=== PATIENT | female | born 1945 | race American Indian/Alaskan Native ===

== ENCOUNTER → 2024-07-16 | Outpatient (CLI) | payer OTHER, SELFPAY ==
[2024-07-16 11:22] LABS: Basophils % (Auto) 0 % (0-2.5); Eosinophils % (Auto) 1 % (0-10); Hematocrit 41.7 % (36.0-46.0); Hemoglobin 13.3 g/dL (12.0-16.0); Immature Granulocytes % (Auto) 1 % (0-0); Immature Granulocytes Auto 0.05 Thou/mm3 (0.00-0.00); Lymphocytes # (Auto) 2.3 Thou/mm3 (1.0-4.8); Lymphocytes % (Auto) 32 % (10-50); Mean Corpuscular HGB Conc 31.9 g/dl (31.0-37.0); Mean Corpuscular Hemoglobin 29.4 pg (25.0-35.0); Mean Corpuscular Volume 92 fL (80-100); Monocytes # (Auto) 0.5 Thou/mm3 (0.0-0.8); Monocytes % (Auto) 7 % (0-12); Neutrophils # (Auto) 4.3 Thou/mm3 (1.8-7.7); Neutrophils % (Auto) 60 % (37-80); Nucleated Red Blood Cell % 0 /100 WBC (0); Platelet Count 250 Thou/mm3 (140-440); RDW Standard Deviation 44.1 fL (36.4-46.3); Red Blood Count 4.52 Miln/mm3 (4.00-5.20); White Blood Count 7.2 Thou/mm3 (3.6-11.0)
[2024-07-16 11:46] LABS: Alanine Aminotransferase 15 U/L (10-49); Albumin, Serum 4.3 gm/dL (3.4-4.8); Albumin/Globulin Ratio 1.8 (1.2-2.2); Alkaline Phosphatase 76 U/L (46-116); Anion Gap 7 (7-16); Aspartate Amino Transferase 19 U/L (0-34); BUN/Creatinine Ratio 28 Ratio (12-20); Bilirubin,Total 0.4 mg/dL (0.3-1.2); Blood Urea Nitrogen 22 mg/dL (9-23); C-Reactive Protein < 0.4 mg/dL (0.0-0.9); Calcium 9.2 mg/dL (8.3-10.6); Calcium (Corrected) 9.2 mg/dL (8.5-10.1); Carbon Dioxide 29.6 mMol/L (20.0-31.0); Chloride 105 mMol/L (98-107); Creatinine (Component) 0.8 mg/dL (0.6-1.3); Globulin 2.4 gm/dL (2.3-3.5); Glucose 94 mg/dL (74-106); Osmolality,Calculated 286 (275-295); Potassium 4.2 mMol/L (3.4-5.1); Sodium 142 mMol/L (136-145); Total Protein 6.7 gm/dL (5.7-8.2); eGFR > 60 See Note
[2024-07-16 12:09] LABS: Sed Rate (ESR) 14 mm/hr (0-30)
== END | disposition home or self-care (01) ==
LOC: COPL 10:32
PROVIDERS: PCP Internal Medicine; Referring Provider Physician Assistant; Visit Provider Physician Assistant
DX: M05.79 Rheumatoid arthritis with rheumatoid factor of multiple sites without organ or systems involvement (principal)
CPT/HCPCS: 36415; 80053; 85025; 85652; 86140

== ENCOUNTER → 2024-08-10 | Outpatient (CLI) | payer OTHER, SELFPAY ==
[2024-08-10 08:10] LABS: Collection Type, Urine Clean Catch
[2024-08-10 08:35] LABS: Basophils % (Auto) 0 % (0-2.5); Eosinophils # (Auto) 0.1 Thou/mm3 (0.0-0.5); Eosinophils % (Auto) 1 % (0-10); Hemoglobin 13.5 g/dL (12.0-16.0); Immature Granulocytes % (Auto) 0 % (0-0); Immature Granulocytes Auto 0.02 Thou/mm3 (0.00-0.00); Lymphocytes # (Auto) 1.6 Thou/mm3 (1.0-4.8); Lymphocytes % (Auto) 23 % (10-50); Mean Corpuscular HGB Conc 32.9 g/dl (31.0-37.0); Mean Corpuscular Volume 91 fL (80-100); Monocytes # (Auto) 0.7 Thou/mm3 (0.0-0.8); Monocytes % (Auto) 10 % (0-12); Neutrophils # (Auto) 4.5 Thou/mm3 (1.8-7.7); Neutrophils % (Auto) 66 % (37-80); Nucleated Red Blood Cell % 0 /100 WBC (0); Platelet Count 232 Thou/mm3 (140-440); RDW Standard Deviation 43.5 fL (36.4-46.3); White Blood Count 6.9 Thou/mm3 (3.6-11.0)
[2024-08-10 08:53] LABS: Sed Rate (ESR) 9 mm/hr (0-30)
[2024-08-10 08:57] LABS: Bacteria,Urine 2+; Bilirubin,Urine Negative (Negative); Blood,Urine 1+ (Negative); Clarity,Urine Turbid (Clear/Hazy); Color,Urine Yellow (Lt Yel-Yel); Culture Indicated,Urine Contaminated; Glucose, Urine Negative (Negative); Ketones,Urine Negative (Negative); Leukocyte Esterase,Urine Positive (Negative); Nitrite,Urine Positive (Negative); Protein,Urine Negative (Neg - Trace); RBC,Urine 4 /hpf (0-3); Squamous Epithelial Cell,Urine 21 /hpf (0-5); Urobilinogen,Urine Negative mg/dL (0.0-1.0); WBC,Urine 35 /hpf (0-5)
[2024-08-10 09:31] LABS: Alanine Aminotransferase 15 U/L (10-49); Albumin, Serum 4.3 gm/dL (3.4-4.8); Alkaline Phosphatase 71 U/L (46-116); Anion Gap 7 (7-16); Aspartate Amino Transferase 18 U/L (0-34); BUN/Creatinine Ratio 26 Ratio (12-20); Bilirubin,Total 0.7 mg/dL (0.3-1.2); Blood Urea Nitrogen 18 mg/dL (9-23); Calcium 9.5 mg/dL (8.3-10.6); Calcium (Corrected) 9.5 mg/dL (8.5-10.1); Carbon Dioxide 28.7 mMol/L (20.0-31.0); Cardiac Risk Estimate 2.4 RATIO (3.7-5.6); Chloride 107 mMol/L (98-107); Cholesterol 139 mg/dL (132-200); Creatinine (Component) 0.7 mg/dL (0.6-1.3); Free T4 (Free Thyroxine) 1.11 ng/dL (0.89-1.76); Globulin 2.2 gm/dL (2.3-3.5); Glucose 95 mg/dL (74-106); HDL Cholesterol 59 mg/dL (40-60); LDL Cholesterol,Calculated 60 mg/dL (0-130); Osmolality,Calculated 286 (275-295); Potassium 4.2 mMol/L (3.4-5.1); Sodium 143 mMol/L (136-145); Total Protein 6.5 gm/dL (5.7-8.2); Triglycerides 100 mg/dL (30-150); eGFR > 60 See Note
== END | disposition home or self-care (01) ==
LOC: COPL 07:36
PROVIDERS: PCP Internal Medicine; Referring Provider Internal Medicine; Visit Provider Internal Medicine
DX: I10 Essential (primary) hypertension (principal)
CPT/HCPCS: 36415; 80053; 80061; 81001; 84439; 84443; 85025; 85652

== ENCOUNTER 2024-10-12 08:38 | Emergency (ER) | payer OTHER, SELFPAY ==
[2024-10-12 08:39] VITALS: BMI 30.2
[2024-10-12 08:50] VITALS: BP 107/59; PULSE 115; RESP 24; TEMP 37; O2SAT 95
--- NOTE | 2024-10-12 08:56 | XR_ITS ---
Examination: AP chest single view Technique one AP portable sitting chest single view Exam date and time: October 12, 2024 0917 hours Comparison January 24, 2018 INDICATIONS: Shortness of breath beginning 3 days ago. FINDINGS: Moderate elevation left hemidiaphragm. Normal heart size Opacity in the right middle lobe obscuring detail right hemidiaphragm IMPRESSION: Recommend lateral chest view follow-up to confirm pneumonia in the right middle lobe
--- NOTE | 2024-10-12 08:57 | PD.EDRME ---
Rapid Medical Screening Exam RME Arrival date/time: 10/12/24 08:38 78-year-old female presents to the emergency department today for complaints of shortness of breath Chief Complaint: Shortness of Breath/Dyspnea Vital signs: Vital Signs Temperature 98.6 F 10/12/24 08:50 Pulse Rate 115 H 10/12/24 08:50 Respiratory Rate 24 H 10/12/24 08:50 Blood Pressure 107/59 L 10/12/24 08:50 Pulse Oximetry (%) 95 10/12/24 08:50 Oxygen Delivery Method Room Air 10/12/24 08:50
[2024-10-12 09:08] VITALS: PULSE 112
--- NOTE | 2024-10-12 09:08 | PC.NURSE ---
Patient presents to ED with c/o difficulty breathing for past couple of days. Patient speaking in 4-5 letter sentences, noted cough and wheezing in between, patient sitting upright in gurney. Patient on property assessment monitor and pulse ox with 96% on room air. Patient states I feel like i cant catch my breath . Patient updated with plans of MD pineda and plan of care at this time.
[2024-10-12] MEDS: ALBUTEROL/IPRATROPIUM (Duoneb) RT SOL 3 ML NEBU INH (09:14)
[2024-10-12 09:15] VITALS: PULSE 104; RESP 23; O2SAT 96
--- NOTE | 2024-10-12 09:33 | PD.EDSOB ---
ED SOB =RME/HPI General Chief Complaint: Shortness of Breath/Dyspnea Stated Complaint: SOB X3 DAYS Time Seen by Provider: 10/12/24 09:34 Arrival date/time: 10/12/24 08:38 Limitations: no limitations RME / HPI RME / HPI Narrative: 10/12/24 08:38 78-year-old female presents to the emergency department today for complaints of shortness of breath DR. ANDERSON MAIN ED EVALUATION: 78 year old female with past medical history significant for asthma and reactive airway presents to the Emergency Department with complaint of shortness of breath onset 1 week and worsening today. Associated symptoms include wheezing and a productive cough onset a week; she went to her PCP last week and was given medicines for asthma exacerbation but today still feels short of breath. No fevers or chills. No other symptoms reported at this time. Other PMHx includes hypertension, hypercholesterolemia, and arthritis. Patient denies any tobacco, alcohol, or substance use. Patient denies any tobacco, alcohol, or substance use. Related Data Home Medications ?Medication ?Instructions ?Recorded ?Confirmed albuterol sulfate 90 mcg/actuation 2 puff inhalation Q6H PRN Wheezing 01/24/18 10/11/22 aerosol inhaler losartan 50 mg tablet 100 mg PO QDAY 01/24/18 10/11/22 pravastatin 20 mg tablet 20 mg PO QDAY 01/24/18 10/11/22 tocilizumab 162 mg/0.9 mL 1 vial subcut QOWEEK 01/24/18 10/11/22 subcutaneous syringe (Actemra) azathioprine 50 mg tablet (Imuran) 50 mg PO QDAY 05/20/19 10/11/22 alendronate 70 mg tablet 70 mg PO QWEEK 10/11/22 10/11/22 amlodipine 5 mg tablet 5 mg PO QDAY 10/11/22 10/11/22 trimethoprim 100 mg tablet 100 mg PO QDAY 10/11/22 10/11/22 Previous Rx's ?Medication ?Instructions ?Recorded fluticasone 250 mcg-salmeterol 50 1 inh inhalation BID #60 ea 10/12/24 mcg/dose blistr powdr for inhalation (Advair Diskus) ipratropium bromide 0.02 % 2.5 ml inhalation Q6H PRN 10/12/24 solution for inhalation shortness of breath or wheezing #150 mL levofloxacin 500 mg tablet 500 mg PO Q24H 5 days #5 tabs 10/12/24 prednisone 10 mg tablet See Taper PO QDAY #30 tabs 10/12/24 Allergies Allergy/AdvReac Type Severity Reaction Status Date / Time acetaminophen (From [place]) Allergy Intermediate Wheezing Verified 10/11/22 10:18 aspirin Allergy Intermediate Wheezing Verified 10/11/22 10:18 codeine Allergy Intermediate Wheezing Verified 10/11/22 10:18 diazepam (From [place]) Allergy Intermediate Wheezing Verified 10/11/22 10:18 hydrocodone (From [place]) Allergy Intermediate Wheezing Verified 10/11/22 10:18 ibuprofen Allergy Intermediate Wheezing Verified 10/11/22 10:18 meperidine (From Demerol) Allergy Intermediate Wheezing Verified 10/11/22 10:18 morphine Allergy Intermediate Vomiting Verified 10/11/22 10:18 tramadol Allergy Intermediate Wheezing Verified 10/11/22 10:18 Milk Containing Products AdvReac Intermediate Vomiting Verified 10/11/22 10:18 (Dairy) (Milk Containing Products) Review of Systems Review of Systems Systems Reviewed: All systems reviewed, normal except as documented Narrative Review of Systems: GEN: No fever, no chills, no weight loss EYES: No discharge, no visual changes, no pain HEENT: No ear pain, no congestion, no sore throat PULM: + shortness of breath, + cough, + congestion CV: No chest pain, no dyspnea on exertion, no palpitations GI: No nausea, no vomiting, no diarrhea, no pain, no constipation : No frequency, no urgency and no dysuria MUSC/SKEL: No joint pain, no back pain SKIN: No rash PSYCH: No hallucinations, no depression HEME/LYMPH: No easy bleeding or bruising tendencies NEURO: No weakness, no headache Past Medical History Past Medical History CARDIAC: Positive Cardiac Disorders, Hypercholesterolemia and Hypertension RESPIRATORY: Positive Asthma GASTROINTESTINAL: Positive Gall Bladder Disease REPRODUCTIVE: Positive Endometriosis and Previous Pregnancies MUSCULOSKELETAL: Positive Musculoskeletal Disorders, Arthritis and Carpal Tunnel Syndrome ENT: Positive Cataracts OTHER HISTORY: Positive Shingles, Anesthesia Reactions, Chicken Pox and Measles Family History FAMILY HISTORY: Positive Family Respiratory Disorders, Family Cardiac Disorders, Family Cancer and Family Surgery Surgical History SURGICAL: Positive Joint Replacement, Arthroscopy, Hysterectomy and Tubal Ligation Social History SMOKING STATUS: Never smoker SUBSTANCE USE: does not use ALCOHOL: Never ED Exam General Limitations: Present no limitations General appearance: Present alert and in no apparent distress Head Head exam: Present atraumatic, normocephalic and normal inspection Eye Eye exam: Present normal appearance, PERRL and EOMI ENT ENT exam: Present normal exam, normal oropharynx and mucous membranes moist Neck Neck exam: Present normal inspection, full ROM and trachea midline Chest Chest inspection: Present normal inspection and symmetric chest wall rise Respiratory Respiratory exam: Present wheezes and other (crackles) Cardiovascular Cardiovascular exam: Present regular rate, normal rhythm and normal heart sounds Abdominal Exam Abdominal exam: Present soft and normal bowel sounds Extremities Exam Extremities exam: Present normal inspection and full ROM Back Exam Back exam: Present normal inspection and full ROM Neurological Exam Neurological exam: Present alert, oriented X3 and CN II-XII intact Psychiatric Psychiatric exam: Present normal affect and normal mood Skin Skin exam: Present warm, dry, intact and normal color Course Quality Measures none Orders Category Date Time Status Shake Cutter NOW Care 10/12/24 08:56 Active Insert IV NOW Care 10/12/24 08:57 Active Discharge Routine Discharge 10/12/24 12:[address] chest wo con Stat Exams 10/12/24 09:37 Completed XR chest 1V portable Stat Exams 10/12/24 08:56 Completed BNP [B-Type Natriuretic Peptide] Stat Lab 10/12/24 10:16 Completed CBC Stat Lab 10/12/24 10:16 Completed CMP [Comprehensive Metabolic Panel] Stat Lab 10/12/24 10:16 Completed Magnesium Stat Lab 10/12/24 10:16 Completed Procalcitonin Stat Lab 10/12/24 10:16 Completed Troponin I Stat Lab 10/12/24 10:16 Completed ALBUTEROL RT 3ml [Proventil Rt 3ml] Med 10/12/24 11:40 Discontinued 10 mg INH X1 ONE Albuterol/Ipratr Rt Gissel [Duoneb Rt Gissel] Med 10/12/24 08:56 Discontinued 3 ml INH X1 ONE Albuterol/Ipratr Rt Gissel [Duoneb Rt Gissel] Med 10/12/24 09:37 Discontinued 3 ml INH X1 ONE Levofloxacin/D5w 500 mg Ivpb [Levaquin Ivpb] Med 10/12/24 09:37 Discontinued 500 mg in 100 ml IV X1 MethylPREDNISolone. [SoluMEDROL Inj] Med 10/12/24 09:37 Discontinued 80 mg IVP X1 ONE Reevaluation(s) Reevaluation #1: Patient is still wheezing, will do another albuterol treatment. Time: 11:40 Vital Signs Vital signs: Vital Signs Temperature 98.6 F 10/12/24 08:50 Pulse Rate 115 H 10/12/24 08:50 Respiratory Rate 24 H 10/12/24 08:50 Blood Pressure 107/59 L 10/12/24 08:50 Pulse Oximetry (%) 95 10/12/24 08:50 Oxygen Delivery Method Room Air 10/12/24 08:50 Shortness of Breath / Dyspnea MDM Narrative MDM Narrative:: Judit Lao, am scribing for and in the presence of Dr. Anderson. Patient data External records reviewed:: [facility] previous records (Reviewed last ED visit dated 10/24/23, discharged with the following: Contusion of face.) Clinical information provided by:: patient Social determinants that could affect healthcare access:: none Patient has the following chronic illnesses:: PMHx: Asthma, reactive airway, hypertension, hypercholesterolemia, and arthritis. PShx: Hysterectomy and tubal ligation. How is presenting disease/condition affected by chronic disease/condition?: caused by Evaluation data The following diagnostics were reviewed and interpreted by me:: lab results and radiology exam(s) Lab and/or radiology exams considered but not ordered:: none Interpretation Summary: Procedure(s): XR chest 1V portable Accession Number(s): [id number] cc: Jose (NANI),Frankie CARDOZA; Dustin Kwan MD; Mariam Pope MD~ Examination: AP chest single view Technique one AP portable sitting chest single view Exam date and time: October 12, 2024 0917 hours Comparison January 24, 2018 INDICATIONS: Shortness of breath beginning 3 days ago. FINDINGS: Moderate elevation left hemidiaphragm. Normal heart size Opacity in the right middle lobe obscuring detail right hemidiaphragm IMPRESSION: Recommend lateral chest view follow-up to confirm pneumonia in the right middle lobe Dictated By: Dustin Kwan MD Procedure(s): CT chest wo [facility] Accession Number(s): [id number] cc: Kamala Anderson MD; Dustin Kwan MD; Mariam Pope MD~ Examination: CT chest, without intravenous contrast. Sagittal and coronal 2-D reconstructions. Exam date and time: October 12, 2024 1018 hours INDICATIONS: Shortness of breath beginning 2 weeks ago, 5 mm pulmonary nodule anterior segment right upper lobe on CT chest December 15, 2020 CTDI:vol (mGy) 16.9 DLP: (mGycm) 606 Technique: Multiple 3.0 mm axial sections of the chest to been obtained. Bone and lung density settings are obtained. Sagittal and coronal 2-D reconstructions have been obtained. Low dose protocols were performed. One or more of the following dose reduction techniques were used; automated exposure control, adjustment of the mA and/or KV according to patient size, use of iterative reconstruction technique. Findings: No thoracic aortic aneurysmal dilatation Pulmonary artery segments are not enlarged. No paratracheal tracheobronchial or bronchopulmonary adenopathy. 11 mm soft pulmonary nodule left upper lobe with indistinct margins image 96 4 mm pulmonary nodule left upper lobe image 99 3 mm pulmonary nodule left upper lobe image 140 Nodule with central calcification in the right lower lobe image 157 No visualized liver or splenic lesion Absent gallbladder Splenule 11 mm left adrenal nodule, probable adenoma IMPRESSION: Noncalcified pulmonary nodules as above, including 11 mm soft pulmonary nodule left upper lobe with indistinct margins, with this study as baseline recommend continued 6 month follow-up CT chest without contrast No mediastinal lymphadenopathy No pneumonia or pulmonary edema Dictated By: Dustin Kwan MD Medications / Prescriptions Medications or Prescriptions considered but not ordered:: none Medication administrations:: Medication Administration History Discontinued Medications Albuterol (Albuterol Rt 2.5 Mg/3 Ml Nebu) 10 mg INH X1 ONE Stop: 10/12/24 11:41 Last Admin: 10/12/24 12:42 Dose: Not Given Documented By: THANIA Non-Admin Reason: Patient Refused Albuterol/Ipratropium (Albuterol/Ipratropium (Duoneb) Rt Gissel 3 Ml Nebu) 3 ml INH X1 ONE Stop: 10/12/24 08:57 Last Admin: 10/12/24 09:14 Dose: 3 ml Documented By: THANIA Albuterol/Ipratropium (Albuterol/Ipratropium (Duoneb) Rt Gissel 3 Ml Nebu) 3 ml INH X1 ONE Stop: 10/12/24 09:38 Last Admin: 10/12/24 12:41 Dose: Not Given Documented By: THANIA Non-Admin Reason: Patient Refused Comments: MD anderson aware Levofloxacin/Dextrose (Levaquin Ivpb) 500 mg in 100 mls @ 100 mls/hr IV X1 ONE Stop: 10/12/24 10:36 Last Admin: 10/12/24 12:21 Dose: 100 mls/hr Documented By: JULIEN Methylprednisolone Sodium Succinate (Methylprednisolone Sod Succ 40 Mg Vial) 80 mg IVP X1 ONE Stop: 10/12/24 09:38 Last Admin: 10/12/24 12:19 Dose: 80 mg Documented By: JULIEN see above Consultations Consultation(s) initiated? (list below): No Diagnosis Shortness of Breath Differential Diagnosis: acute exacerbation of chronic obstructive airways disease, community acquired pneumonia and asthma with exacerbation Most likely diagnosis given after review of the tests above:: Asthma with exacerbation Acute bacterial bronchitis Admission Indicated Admission indicated?: not indicated Admission Request Was there a request for admission?: No Disposition Plan Disposition Plan: Discharge Discharge Attestation Discharge Attestation: The patient and all family members were given an opportunity to ask questions and understood the discharge instructions. Discharge instructions specifically effects, indications for sooner follow up or return to the emergency department, and the expected course of current diagnosis. Patient condition: Stable Discharge Plan Plan Patient Disposition: HOME (Self Care) Patient condition on transfer: Stable Prescriptions/Referrals Prescriptions/Med Rec: New ipratropium bromide 0.02 % solution 2.5 ml inhalation Q6H PRN (Reason: shortness of breath or wheezing) Qty: 150 0RF levofloxacin 500 mg tablet 500 mg PO Q24H 5 Days Qty: 5 0RF fluticasone propion-salmeterol [Advair Diskus] 250-50 mcg/dose blister with device 1 inh inhalation BID Qty: 60 0RF prednisone 10 mg tablet See Taper PO QDAY Qty: 30 0RF Taper: Prednisone Taper 60 mg DAILY for 2 Days and 0 Hour 40 mg DAILY for 2 Days and 0 Hour 20 mg DAILY for 2 Days and 0 Hour 10 mg DAILY for 2 Days and 0 Hour Rx Instructions: Take 6 tablets once a day for 2 days then 4 tablets once a day for 2 days then 20 tablets once a day for 2 days then 1 tablet once a day for 2 days then you can stop the medication No Action azathioprine [Imuran] 50 mg Tablet 50 mg PO QDAY losartan 50 mg Tablet 100 mg PO QDAY pravastatin 20 mg Tablet 20 mg PO QDAY albuterol sulfate 90 mcg/actuation Hfa Aerosol Inhaler 2 puff INHALATION Q6H PRN (Reason: Wheezing) Actemra 162 mg/0.9 mL Syringe 1 vial Sub-Q QOWEEK amlodipine 5 mg tablet 5 mg PO QDAY trimethoprim 100 mg Tablet 100 mg PO QDAY alendronate 70 mg Tablet 70 mg PO QWEEK Referrals: Grace Wild MD [Primary Care Provider] - In 1 week Problem List Clinical Impression: Asthma with exacerbation, Acute bacterial bronchitis Patient/Caregiver Discharge Instructions Discharge Activity: activity as tolerated Education Materials: Asthma Action Plan, ED Bronchitis with Wheezing (Adult) Print Language: [place] Stand Alone Forms: Lana Award Info., Patient Portal Info Letter
--- NOTE | 2024-10-12 09:37 | XR_ITS ---
Examination: CT chest, without intravenous contrast. Sagittal and coronal 2-D reconstructions. Exam date and time: October 12, 2024 1018 hours INDICATIONS: Shortness of breath beginning 2 weeks ago, 5 mm pulmonary nodule anterior segment right upper lobe on CT chest December 15, 2020 CTDI:vol (mGy) 16.9 DLP: (mGycm) 606 Technique: Multiple 3.0 mm axial sections of the chest to been obtained. Bone and lung density settings are obtained. Sagittal and coronal 2-D reconstructions have been obtained. Low dose protocols were performed. One or more of the following dose reduction techniques were used; automated exposure control, adjustment of the mA and/or KV according to patient size, use of iterative reconstruction technique. Findings: No thoracic aortic aneurysmal dilatation Pulmonary artery segments are not enlarged. No paratracheal tracheobronchial or bronchopulmonary adenopathy. 11 mm soft pulmonary nodule left upper lobe with indistinct margins image 96 4 mm pulmonary nodule left upper lobe image 99 3 mm pulmonary nodule left upper lobe image 140 Nodule with central calcification in the right lower lobe image 157 No visualized liver or splenic lesion Absent gallbladder Splenule 11 mm left adrenal nodule, probable adenoma IMPRESSION: Noncalcified pulmonary nodules as above, including 11 mm soft pulmonary nodule left upper lobe with indistinct margins, with this study as baseline recommend continued 6 month follow-up CT chest without contrast No mediastinal lymphadenopathy No pneumonia or pulmonary edema
[2024-10-12 11:07] LABS: Basophils # (Auto) 0.1 Thou/mm3 (0.0-0.2); Basophils % (Auto) 1 % (0-2.5); Eosinophils # (Auto) 0.1 Thou/mm3 (0.0-0.5); Eosinophils % (Auto) 1 % (0-10); Hematocrit 40.9 % (36.0-46.0); Hemoglobin 13.3 g/dL (12.0-16.0); Immature Granulocytes % (Auto) 1 % (0-0); Immature Granulocytes Auto 0.05 Thou/mm3 (0.00-0.00); Lymphocytes # (Auto) 2.1 Thou/mm3 (1.0-4.8); Lymphocytes % (Auto) 20 % (10-50); Mean Corpuscular HGB Conc 32.5 g/dl (31.0-37.0); Mean Corpuscular Hemoglobin 29.8 pg (25.0-35.0); Mean Corpuscular Volume 92 fL (80-100); Monocytes # (Auto) 1.1 Thou/mm3 (0.0-0.8); Monocytes % (Auto) 11 % (0-12); Neutrophils # (Auto) 6.9 Thou/mm3 (1.8-7.7); Neutrophils % (Auto) 67 % (37-80); Nucleated Red Blood Cell % 0 /100 WBC (0); Platelet Count 221 Thou/mm3 (140-440); RDW Standard Deviation 45.9 fL (36.4-46.3); Red Blood Count 4.47 Miln/mm3 (4.00-5.20); White Blood Count 10.3 Thou/mm3 (3.6-11.0)
[2024-10-12 11:14] LABS: B-Type Natriuretic Peptide < 20 pg/mL (0-100)
[2024-10-12 11:23] LABS: Alanine Aminotransferase 16 U/L (10-49); Albumin, Serum 4.3 gm/dL (3.4-4.8); Albumin/Globulin Ratio 1.6 (1.2-2.2); Alkaline Phosphatase 58 U/L (46-116); Anion Gap 11 (7-16); Aspartate Amino Transferase 25 U/L (0-34); BUN/Creatinine Ratio 22 Ratio (12-20); Bilirubin,Total 0.8 mg/dL (0.3-1.2); Blood Urea Nitrogen 28 mg/dL (9-23); Calcium 8.5 mg/dL (8.3-10.6); Calcium (Corrected) 8.5 mg/dL (8.5-10.1); Chloride 103 mMol/L (98-107); Creatinine (Component) 1.3 mg/dL (0.6-1.3); Globulin 2.7 gm/dL (2.3-3.5); Glucose 98 mg/dL (74-106); Magnesium 2.1 mg/dL (1.6-2.6); Osmolality,Calculated 281 (275-295); Procalcitonin 0.15 ng/ml (0.0-0.49); Sodium 138 mMol/L (136-145); Troponin I < 0.002 ng/mL (0.0-0.045); eGFR 42 See Note
[2024-10-12] MEDS: LEVOFLOXACIN/D5W 500 MG IVPB 500 MG/100 ML BAG 100 MG IV (12:21)
[2024-10-12 12:42] VITALS: PULSE 103
[2024-10-12 14:00] VITALS: BP 117/58; PULSE 86; RESP 22; TEMP 36.7; O2SAT 95
== END 2024-10-12 14:00 | disposition home or self-care (01) ==
PROVIDERS: Emergency Provider Emergency Medicine; PCP Internal Medicine
DX: J45.901 Unspecified asthma with (acute) exacerbation (principal); J20.8 Acute bronchitis due to other specified organisms; B96.89 Other specified bacterial agents as the cause of diseases classified elsewhere; R91.8 Other nonspecific abnormal finding of lung field
CPT/HCPCS: 36415; 71045; 71250; 80053; 83735; 83880; 84145; 84484; 85025; 94640; 96365; 96375; 99284; A9270; J1956; J2919

== ENCOUNTER → 2024-11-10 | Outpatient (CLI) | payer OTHER, SELFPAY ==
[2024-11-10 08:50] LABS: Basophils % (Auto) 0 % (0-2.5); Eosinophils # (Auto) 0.1 Thou/mm3 (0.0-0.5); Eosinophils % (Auto) 2 % (0-10); Hematocrit 39.9 % (36.0-46.0); Hemoglobin 12.9 g/dL (12.0-16.0); Immature Granulocytes % (Auto) 1 % (0-0); Immature Granulocytes Auto 0.04 Thou/mm3 (0.00-0.00); Lymphocytes # (Auto) 1.9 Thou/mm3 (1.0-4.8); Lymphocytes % (Auto) 29 % (10-50); Mean Corpuscular HGB Conc 32.3 g/dl (31.0-37.0); Mean Corpuscular Hemoglobin 29.9 pg (25.0-35.0); Mean Corpuscular Volume 92 fL (80-100); Monocytes # (Auto) 0.4 Thou/mm3 (0.0-0.8); Monocytes % (Auto) 7 % (0-12); Neutrophils # (Auto) 4.2 Thou/mm3 (1.8-7.7); Neutrophils % (Auto) 62 % (37-80); Nucleated Red Blood Cell % 0 /100 WBC (0); Platelet Count 241 Thou/mm3 (140-440); RDW Standard Deviation 48.2 fL (36.4-46.3); Red Blood Count 4.32 Miln/mm3 (4.00-5.20); White Blood Count 6.7 Thou/mm3 (3.6-11.0)
[2024-11-10 09:41] LABS: Sed Rate (ESR) 9 mm/hr (0-30)
[2024-11-10 10:21] LABS: Alanine Aminotransferase 13 U/L (10-49); Albumin, Serum 4.2 gm/dL (3.4-4.8); Alkaline Phosphatase 61 U/L (46-116); Anion Gap 10 (7-16); Aspartate Amino Transferase 20 U/L (0-34); BUN/Creatinine Ratio 28 Ratio (12-20); Bilirubin,Total 0.7 mg/dL (0.3-1.2); Blood Urea Nitrogen 22 mg/dL (9-23); C-Reactive Protein < 0.5 mg/dL (0.0-0.9); Calcium 9.2 mg/dL (8.3-10.6); Calcium (Corrected) 9.2 mg/dL (8.5-10.1); Carbon Dioxide 27.5 mMol/L (20.0-31.0); Chloride 108 mMol/L (98-107); Creatinine (Component) 0.8 mg/dL (0.6-1.3); Globulin 2.1 gm/dL (2.3-3.5); Glucose 97 mg/dL (74-106); Osmolality,Calculated 292 (275-295); Potassium 4.2 mMol/L (3.4-5.1); Sodium 145 mMol/L (136-145); Total Protein 6.3 gm/dL (5.7-8.2); eGFR > 60 See Note
== END | disposition home or self-care (01) ==
PROVIDERS: PCP Internal Medicine; Referring Provider Physician Assistant; Visit Provider Physician Assistant
DX: M05.79 Rheumatoid arthritis with rheumatoid factor of multiple sites without organ or systems involvement (principal)
CPT/HCPCS: 36415; 80053; 85025; 85652; 86140

== ENCOUNTER → 2025-02-09 | Outpatient (CLI) | payer OTHER, SELFPAY ==
[2025-02-09 07:17] LABS: Quantiferon-TB* See Sep Rpt
[2025-02-09 08:45] LABS: Basophils # (Auto) 0.0 Thou/mm3 (0.0-0.2); Basophils % (Auto) 0 % (0-2.5); Eosinophils # (Auto) 0.1 Thou/mm3 (0.0-0.5); Eosinophils % (Auto) 1 % (0-10); Hematocrit 39.6 % (36.0-46.0); Hemoglobin 12.6 g/dL (12.0-16.0); Immature Granulocytes Auto 0.05 Thou/mm3 (0.00-0.00); Lymphocytes # (Auto) 1.6 Thou/mm3 (1.0-4.8); Lymphocytes % (Auto) 19 % (10-50); Mean Corpuscular HGB Conc 31.8 g/dl (31.0-37.0); Mean Corpuscular Hemoglobin 30.4 pg (25.0-35.0); Mean Corpuscular Volume 95 fL (80-100); Monocytes # (Auto) 0.6 Thou/mm3 (0.0-0.8); Monocytes % (Auto) 7 % (0-12); Neutrophils # (Auto) 6.1 Thou/mm3 (1.8-7.7); Neutrophils % (Auto) 72 % (37-80); Nucleated Red Blood Cell # 0.00 Thou/mm3 (0.00-0.00); Nucleated Red Blood Cell % 0 /100 WBC (0); Platelet Count 259 Thou/mm3 (140-440); RDW Standard Deviation 46.2 fL (36.4-46.3); Red Blood Count 4.15 Miln/mm3 (4.00-5.20); White Blood Count 8.5 Thou/mm3 (3.6-11.0)
[2025-02-09 08:58] LABS: Alanine Aminotransferase 12 U/L (10-49); Albumin, Serum 4.2 gm/dL (3.4-4.8); Albumin/Globulin Ratio 1.9 (1.2-2.2); Alkaline Phosphatase 73 U/L (46-116); Anion Gap 10 (7-16); Aspartate Amino Transferase 19 U/L (0-34); BUN/Creatinine Ratio 24 Ratio (12-20); Bilirubin,Total 0.5 mg/dL (0.3-1.2); Blood Urea Nitrogen 19 mg/dL (9-23); C-Reactive Protein < 0.5 mg/dL (0.0-0.9); Calcium 9.5 mg/dL (8.3-10.6); Calcium (Corrected) 9.5 mg/dL (8.5-10.1); Carbon Dioxide 26.2 mMol/L (20.0-31.0); Chloride 108 mMol/L (98-107); Creatinine (Component) 0.8 mg/dL (0.6-1.3); Globulin 2.2 gm/dL (2.3-3.5); Glucose 97 mg/dL (74-106); Osmolality,Calculated 289 (275-295); Potassium 4.0 mMol/L (3.4-5.1); Sodium 144 mMol/L (136-145); Total Protein 6.4 gm/dL (5.7-8.2); eGFR > 60 See Note
[2025-02-09 09:13] LABS: Sed Rate (ESR) 24 mm/hr (0-30)
[2025-02-09 12:02] LABS: Cocci Serology, IgM Negative (Negative)
[2025-02-11 11:43] LABS: Cocci Serology, IgG Negative (Negative)
== END | disposition home or self-care (01) ==
LOC: COPL 06:55
PROVIDERS: PCP Internal Medicine; Referring Provider Nurse Practitioner Family; Visit Provider Nurse Practitioner Family
DX: M05.79 Rheumatoid arthritis with rheumatoid factor of multiple sites without organ or systems involvement (principal)
CPT/HCPCS: 36415; 80053; 85025; 85652; 86140; 86331; 86480; 86635

== ENCOUNTER → 2025-04-12 | Outpatient (CLI) | payer OTHER, SELFPAY ==
[2025-04-12 08:44] LABS: Albumin, Serum 4.6 gm/dL (3.4-4.8); Anion Gap 7 (7-16); BUN/Creatinine Ratio 25 Ratio (12-20); Blood Urea Nitrogen 20 mg/dL (9-23); Calcium 9.4 mg/dL (8.3-10.6); Calcium (Corrected) 9.4 mg/dL (8.5-10.1); Carbon Dioxide 28.4 mMol/L (20.0-31.0); Cardiac Risk Estimate 2.4 RATIO (3.7-5.6); Chloride 109 mMol/L (98-107); Cholesterol 138 mg/dL (132-200); Creatinine (Component) 0.8 mg/dL (0.6-1.3); Glucose 96 mg/dL (74-106); HDL Cholesterol 58 mg/dL (40-60); LDL Cholesterol,Calculated 65 mg/dL (0-130); Osmolality,Calculated 289 (275-295); Phosphorous 4.3 mg/dL (2.4-5.1); Potassium 4.3 mMol/L (3.4-5.1); Sodium 144 mMol/L (136-145); Triglycerides 77 mg/dL (30-150); eGFR > 60 See Note
== END | disposition home or self-care (01) ==
LOC: COPL 06:56
PROVIDERS: PCP Internal Medicine; Referring Provider Internal Medicine; Visit Provider Internal Medicine
DX: I10 Essential (primary) hypertension (principal)
CPT/HCPCS: 36415; 80061; 80069

== ENCOUNTER → 2025-04-26 | Outpatient (CLI) | payer OTHER, SELFPAY ==
--- NOTE | 2025-04-26 09:15 | XR_ITS ---
Examination: Screening digital mammography, bilateral Computer aided detection 3-D breast Tomosynthesis, bilateral Date and time of exam: April 26, 2025, 0905 hours Compared to mammograms dating to March 30, 2020 Indication: Screening Technique: Nonmagnified MLO, CC views of the breasts to been obtained, reconstructed from 3-D Tomosynthesis images. R2 computer aided detection program utilized for evaluation of suspicious masses and/or abnormal calcifications. 3-D Tomosynthesis images obtained. Findings: Scattered areas of fibroglandular density. Right breast skin lesions Benign calcifications. No interval suspicious masses Impression: BI-RADS category II: Benign Findings. Recommend 1 year follow-up mammogram.
== END | disposition home or self-care (01) ==
PROVIDERS: PCP Internal Medicine; Referring Provider Internal Medicine; Visit Provider Internal Medicine
DX: R92.323 Mammographic fibroglandular density, bilateral breasts (principal); R92.1 Mammographic calcification found on diagnostic imaging of breast
CPT/HCPCS: 77063; 77067

== ENCOUNTER → 2025-06-08 | Outpatient (CLI) | payer OTHER, SELFPAY ==
[2025-06-08 08:39] LABS: Basophils # (Auto) 0.0 Thou/mm3 (0.0-0.2); Basophils % (Auto) 0 % (0-2.5); Eosinophils # (Auto) 0.1 Thou/mm3 (0.0-0.5); Eosinophils % (Auto) 1 % (0-10); Hematocrit 41.4 % (36.0-46.0); Hemoglobin 13.1 g/dL (12.0-16.0); Immature Granulocytes Auto 0.06 Thou/mm3 (0.00-0.00); Lymphocytes # (Auto) 1.8 Thou/mm3 (1.0-4.8); Lymphocytes % (Auto) 24 % (10-50); Mean Corpuscular HGB Conc 31.6 g/dl (31.0-37.0); Mean Corpuscular Hemoglobin 30.5 pg (25.0-35.0); Mean Corpuscular Volume 97 fL (80-100); Monocytes # (Auto) 0.6 Thou/mm3 (0.0-0.8); Monocytes % (Auto) 8 % (0-12); Neutrophils # (Auto) 4.9 Thou/mm3 (1.8-7.7); Neutrophils % (Auto) 66 % (37-80); Nucleated Red Blood Cell # 0.00 Thou/mm3 (0.00-0.00); Nucleated Red Blood Cell % 0 /100 WBC (0); Platelet Count 241 Thou/mm3 (140-440); RDW Standard Deviation 48.6 fL (36.4-46.3); Red Blood Count 4.29 Miln/mm3 (4.00-5.20); White Blood Count 7.5 Thou/mm3 (3.6-11.0)
[2025-06-08 08:43] LABS: Alanine Aminotransferase 15 U/L (10-49); Albumin, Serum 4.3 gm/dL (3.4-4.8); Albumin/Globulin Ratio 1.7 (1.2-2.2); Alkaline Phosphatase 71 U/L (46-116); Anion Gap 8 (7-16); Aspartate Amino Transferase 20 U/L (0-34); BUN/Creatinine Ratio 23 Ratio (12-20); Bilirubin,Total 0.5 mg/dL (0.3-1.2); Blood Urea Nitrogen 18 mg/dL (9-23); C-Reactive Protein < 0.5 mg/dL (0.0-0.9); Calcium 9.5 mg/dL (8.3-10.6); Calcium (Corrected) 9.5 mg/dL (8.5-10.1); Carbon Dioxide 27.5 mMol/L (20.0-31.0); Chloride 109 mMol/L (98-107); Creatinine (Component) 0.8 mg/dL (0.6-1.3); Globulin 2.6 gm/dL (2.3-3.5); Glucose 95 mg/dL (74-106); Osmolality,Calculated 288 (275-295); Potassium 4.3 mMol/L (3.4-5.1); Sodium 144 mMol/L (136-145); Total Protein 6.9 gm/dL (5.7-8.2); eGFR > 60 See Note
[2025-06-08 08:56] LABS: Sed Rate (ESR) 18 mm/hr (0-30)
== END | disposition home or self-care (01) ==
LOC: COPL 07:47
PROVIDERS: PCP Internal Medicine; Referring Provider Internal Medicine; Visit Provider Internal Medicine
DX: M05.79 Rheumatoid arthritis with rheumatoid factor of multiple sites without organ or systems involvement (principal)
CPT/HCPCS: 36415; 80053; 85025; 85652; 86140